=== PATIENT | female | born 1985 | race Caucasian/White ===

== ENCOUNTER 2017-08-30 05:33 | Day surgery (SDC) | payer MEDICAID ==
[2017-08-30] MEDS ORDERED: LR 1,000 ML IV ONE (06:01)
[2017-08-30 06:15] VITALS: PULSE 87
[2017-08-30] MEDS ORDERED: BUPIVACAINE 0.5% 30 ML SDV ONE (07:06)
[2017-08-30] MEDS ORDERED: MIDAZOLAM 2 MG/2 ML VIAL IVP ONE (07:11)
--- NOTE | 2017-08-30 07:11 | PDANEPAE ---
ANE History of Present Illness EUA ANE Past Medical History - Cardiovascular History Hx Hypertension: No Hx Arrhythmias: No Hx Chest Pain: No Hx Coronary Artery / Peripheral Vascular Disease: No Hx CHF / Valvular Disease: No Hx Palpitations: No - Pulmonary History Hx COPD: No Hx Asthma/Reactive Airway Disease: No Hx Recent Upper Respiratory Infection: No Hx Oxygen in Use at Home: No Hx Sleep Apnea: No Sleep Apnea Screening Result - Last Documented: Negative - Neurologic History Hx Cerebrovascular Accident: No Hx Seizures: No Hx Dementia: No - Endocrine History Hx Diabetes: No - Renal History Hx Renal Disorders: No - Liver History Hx Hepatic Disorders: No - Neurological & Psychiatric Hx Hx Neurological and Psychiatric Disorders: Yes Neurological / Psychiatric History Comment: ANXIETY. PANIC ATTACKS - Cancer History Hx Cancer: Yes Cancer History Comment: PRE MELANOMA REMOVED - Congenital Disorder History Hx Congenital Disorders: No - GI History Hx Gastrointestinal Disorders: Yes Gastrointestinal History Comment: IBS - Other Health History Other Health History: NEG - Chronic Pain History Chronic Pain: Yes - Surgical History Prior Surgeries: COLONOSCOPY. ENDOSCOPY. WISDOM TEETH ANE Review of Systems Review of Systems: - Exercise capacity METS (RN): 4 METS ANE Patient History - Allergies Allergies/Adverse Reactions: No Known Allergies Allergy (Unverified 08/28/17 15:45) - Home Medications Home Medications: Ibuprofen 08/28/17 [Last Taken 08/23/17] Tylenol 08/28/17 [Last Taken 08/28/17] - NPO status NPO Since - Liquids (Date): 08/29/17 NPO Since - Liquids (Time): 20:00 NPO Since - Solids (Date): 08/29/17 NPO Since - Solids (Time): 20:00 - Anes Hx Anes Hx: no prior problems - Smoking Hx Smoking Status: Current some day smoker Marijuana use: Yes - Alcohol Use Alcohol Use: Occasionally - Family Anes Hx Family Anes Hx: none Family Hx Anesthesia Complications: NEG ANE Labs/Vital Signs - Vital Signs Blood Pressure: 112/69 Heart Rate: 87 Respiratory Rate: 16 O2 Sat (%): 97 Height: 157.48 cm Weight: 62.596 kg ANE Physical Exam - Airway Neck exam: FROM Mallampati Score: Class 1 Mouth exam: normal dental/mouth exam - Pulmonary Pulmonary: no respiratory distress - Cardiovascular Cardiovascular: regular rate and rhythym ANE Anesthesia Plan Anesthesia Plan: general endotracheal anesthesia
[2017-08-30] MEDS ORDERED: MIDAZOLAM 2 MG/2 ML VIAL ONE (07:12)
--- NOTE | 2017-08-30 07:15 | PDHPUP ---
History & Physical Update H&P update statement: This history and physical update is based on an assessment of the patient which was completed after admission or registration (within 24 hours), but prior to the surgery/procedure.
[2017-08-30] MEDS ORDERED: cefOXitin SODIUM 2 GM in STERILE WATER INJ 21 ML IV ONE (07:20)
[2017-08-30] MEDS ORDERED: fentaNYL 100 MCG/2 ML INJ ONE ×2 (07:20)
[2017-08-30] MEDS ORDERED: ONDANSETRON 4 MG/2 ML VIAL ONE (07:21)
[2017-08-30] MEDS ORDERED: DEXAMETHASONE 4 MG/ML VIAL ONE (07:21)
[2017-08-30] MEDS ORDERED: GLYCOPYRROLATE 0.2 MG/1 ML VIAL ONE ×3 (07:21→08:21)
[2017-08-30] MEDS ORDERED: LIDOCAINE 2% 5 ML SDV ONE (07:21)
[2017-08-30] MEDS ORDERED: ROCURONIUM 50 MG/5 ML VIAL ONE (07:21)
[2017-08-30] MEDS ORDERED: PROPOFOL/EMULSION 500 MG/50 ML BOTTLE IV ONE (07:21)
[2017-08-30] MEDS ORDERED: PROPOFOL 200 MG/20 ML VIAL ONE ×2 (08:02→08:03)
[2017-08-30] MEDS ORDERED: KETOROLAC 30 MG/1 ML SDV ONE (08:21)
[2017-08-30] MEDS ORDERED: NEOSTIGMINE METHYLSULFATE 3 MG/3 ML SYR ONE (08:21)
--- NOTE | 2017-08-30 08:42 | POSTOPPROG ---
Post Op Note Date of Operation: 08/30/17 Surgeon: Sourav Ochoa Corrugated Box Machine Operator: Marichuy Anesthesiologist: Pankaj Anesthesia: GET(General Endotracheal) Pre-op Diagnosis: hemorrhoids Post-op Diagnosis: same Indication: pain Procedure: hemorrhoidectomy Findings: Internal and external hemorrhoids Inf/Abcess present in the surg proc area at time of surgery?: No EBL: Minimal
[2017-08-30] MEDS ORDERED: ONDANSETRON 4 MG/2 ML VIAL IVP PRN (08:45)
[2017-08-30] MEDS ORDERED: fentaNYL 100 MCG/2 ML INJ IVP PRN (08:45)
[2017-08-30] MEDS ORDERED: NALOXONE HCL 0.4 MG/ML INJ IVP PRN (08:45)
[2017-08-30] MEDS ORDERED: HYDROCODONE/APAP 5/325 TAB PO PRN (08:45)
[2017-08-30] MEDS ORDERED: HYDROmorphONE/DILAUDID 1 MG/ML INJ IVP PRN (08:45)
[2017-08-30] MEDS ORDERED: OXYCODONE/APAP 5/325 TAB PO PRN (08:45)
[2017-08-30] MEDS ORDERED: METOCLOPRAMIDE 10 MG/2 ML VIAL IVP PRN (08:45)
[2017-08-30 09:02] VITALS: RESP 37
[2017-08-30 09:09] VITALS: TEMP 97.9
[2017-08-30 09:20] VITALS: BP 108/77; O2SAT 96
--- NOTE | 2017-08-30 09:52 | GOP ---
[f rep st] OPERATIVE REPORT DATE OF OPERATION: 08/30/2017 SURGEON: Sourav Ochoa MD PRODUCT STEWARD: Khushi Benedict NP. ANESTHESIOLOGIST: Dr. Lira. PREOPERATIVE DIAGNOSIS: Symptomatic prolapsing hemorrhoids. POSTOPERATIVE DIAGNOSIS: Symptomatic prolapsing hemorrhoids. PROCEDURE PERFORMED: Exam under anesthesia with hemorrhoidectomy. FINDINGS: Patient was found to have a grade 3 to 4 hemorrhoid prolapse at the 11 o'clock and 5 o'mely ck positions. She also has minor hemorrhoids at the 7 o'clock position. ESTIMATED BLOOD LOSS: Negligible. DESCRIPTION OF PROCEDURE: Patient was taken to the operating room where she received satisfactory ge neral endotracheal anesthesia by Dr. Lira, placed in the lithotomy position, prepped and draped in the usual sterile fashion. The anus was infiltrated with 0.5% Marcaine and gently dilated to 3 finge rbreadths. The scope was introduced. Hemorrhoids were evaluated and grouped into 3 groups at the 11 o'clock, 5 o'clock and 7 o'clock positions. At 11 o'clock and 5 o'clock, elliptical skin and mucosal incisions were made and the tissue was elevated up off the sphincter muscle and then clamped over th e Mani clamp. Hemorrhoid tissue was excised and the wound was then closed with a running 3-0 Vicryl suture. Hemostasis was assured. Both areas were handled in a similar manner. In addition, the hemo rrhoid banding was done at the 7 o'clock position and also at the 12 o'clock position. The wound was further infiltrated with 0.5% Marcaine and dressed. She tolerated the procedure well and was taken to the recovery room in good condition. There were no complications. /[id number]/MODL
--- NOTE | 2017-08-30 13:55 | POSTANESTH ---
Post Anesthetic Evaluation Cardiovascular Status: Normal, Stable Respiratory Status: Normal, Stable Level of Consciousness/Mental Status: Can Participate in Eval Pain Control: Adequate, Prn Tx Ordered Nausea/Vomiting Control: Adequate, Prn Tx Ordered Complications Possibly Related to Anesthesia: None Noted
== END 2017-08-30 09:45 | disposition home or self-care (01) ==
LOC: FSGY 05:33
PROVIDERS: ATTEND Surgery
PROC: 06BY0ZC Excision of Hemorrhoidal Plexus, Open Approach (ICD-10-PCS; principal; 2017-08-30 07:15)
PROC: 0DJD8ZZ Inspection of Lower Intestinal Tract, Via Natural or Artificial Opening Endoscopic (ICD-10-PCS; principal; 2017-08-30 07:15)
DX: K64.2 Third degree hemorrhoids (principal); K64.3 Fourth degree hemorrhoids
CPT/HCPCS: J0171; J0694; J1100; J1885; J2250; J2405; J2704; J2710; J3010

== ENCOUNTER 2018-09-16 10:59 | Emergency (ER) | payer MEDICAID ==
[2018-09-16 11:10] VITALS: BP 118/84
--- NOTE | 2018-09-16 11:43 | EDPHY ---
HPI/HX/ROS/PE/MDM Narrative: CHIEF COMPLAINT: "A horse knocked me out" HPI: This patient is a healthy 32-year-old female. She presents today with head and facial pain after an accidental head injury this morning. She was walking her horse when he spooked suddenly and reared, striking her in the face with his head. She was thrown back onto the ground and endorses a loss of consioucness possibly lasting several minutes. She was woken by a stall hand who saw her horse running free, and cannot identify how long she may have been unconsciousness. She is not anticoagulated. She notes she has frequent migraines and endorses frequent falls from her horse. She does always wear a helmet when she rides. No fever, chest pain, abdominal pain, difficulty breathing, or other associated symptoms. REVIEW OF SYSTEMS: A comprehensive 10 system review of systems is otherwise negative aside from elements mentioned in the history of present illness and medical decision making. PMH: Denies SOCIAL HISTORY: Engaged. Employed. Lives in [place]. PHYSICAL EXAM: General:Patient is alert, in no acute distress. ENT: Tenderness and mild swelling over right facial bones. Eyes are normal to inspection. Neck: Normal inspection. Full range of motion. Respiratory:No respiratory distress. Breath sounds normal bilaterally. Cardiovascular: Regular rate and rhythm. Strong peripheral pulses. Normal cap refill. Abdomen:The abdomen is nontender to palpation. There are no peritoneal signs. There are normal bowel sounds. Back: Normal to inspection. No tenderness to palpation. Skin: Normal color. No rash. Warm and dry. Extremities: Normal appearance. Full range of motion. Neuro: Oriented x3. Normal motor function. Normal sensory function. ED Course: 32 year old female presents after being struck in the head by her horse this morning with positive loss of consciousness. We discussed the risks and benefits of CT imaging. The patient wishes to proceed with CT to r/o acute intracranial processes, fractures, or other abnormalities. 11:[address] Cartwright, radiologist. CT head is negative for acute processes. 12:00 Reassessed patient. Discussed imaging results. She is relieved that there are no acute processes noted on her imaging studies today. Plan to discharge home in good condition. Follow up and strict return precautions discussed. She is comfortable with this plan. - Data Points Imaging Results: Imaging Impressions Head CT 09/16/18 11:16 Impression: No acute intracranial process. Findings and recommendations discussed with Spencer Ramirez MD at 1148 hour, 09/16/2018. Imaging: Discussed imaging studies w/ yard caller Radiologist General Time Seen by Provider: 09/16/18 11:05 Initial Vital Signs: Initial Vital Signs Temperature (C) 36.9 C 09/16/18 11:08 Heart Rate 82 09/16/18 11:08 Respiratory Rate 16 09/16/18 11:08 Blood Pressure 118/84 H 09/16/18 11:08 O2 Sat (%) 99 09/16/18 11:08 O2 Delivery Mode Room Air Allergies/Adverse Reactions: No Known Allergies Allergy (Unverified 09/16/18 11:08) Home Medications: Medication Instructions Recorded Ibuprofen 08/28/17 Tylenol 08/28/17 Melatonin 09/16/18 Departure - Departure Disposition: Home, Routine, Self-Care Clinical Impression: Struck by horse Qualifiers: Encounter type: initial encounter Qualified Code(s): W55.12XA - Struck by horse , initial encounter Head injury Qualifiers: Encounter type: initial encounter Qualified Code(s): S09.90XA - Unspecified injury of head, initial encounter Condition: Good Instructions: Head Injury (ED) Additional Instructions: Follow-up with your primary doctor within 72 hours. Return to the Emergency Department for severe headache, vomiting, vision changes , confusion, fever or other concerns. Referrals: Jolene Dowling MD [Medical Doctor] - As per Instructions Report Scribed for: Spencer Ramirez Report Scribed by: Karin Newton Date of Report: 09/16/18 Time of Report: 12:03 Physician Review and Approval Statement: Portions of this note were transcribed by an ED scribe. I personally performed the history, physical exam, and medical decision making; and confirm the accuracy of the information in the transcribed note.
== END 2018-09-16 12:04 | disposition home or self-care (01) ==
DX: S09.90XA Unspecified injury of head, initial encounter (principal); W55.12XA Struck by horse, initial encounter; Y93.89 Activity, other specified

== ENCOUNTER → 2018-12-18 | Outpatient (CLI) | payer MEDICAID | LOC: FIMAGING 11:51 ==